=== PATIENT | male | born 1985 | race Caucasian/White ===

== ENCOUNTER 2017-12-31 20:41 | Emergency (ER) | payer SELFPAY ==
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
[2017-12-31 21:35] LABS: PLATELET COUNT 294 10^3/uL (150-400)
[2018-01-01 18:48] VITALS: BP 118/87
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
--- NOTE | 2018-01-01 19:17 | ASMTTCLDSP ---
TLC Discharge Disposition Disposition: Answers: Discharge Disposition Notes: Notes: Pt discharged home in care of parents. They will be driving back home to [place] where they all live. Pt was given the [facility] brochure. Discharge Concerns/Recommendations: Notes: IN CONSULTATION WITH [facility] ED PHYSICIAN, BRENNON TOSCANO MD, AND ON-CALL PSYCHIATRIST,JOVANY SUAREZ MD, BOTH CONCURRED THAT PT DOES NOT APPEAR TO MEET 27-65 CRITERIA REQUIRING PSYCHIATRIC HOSPITALIZATION PT DOES NOT APPEAR TO BE AN IMMINENT RISK OF HARM TO SELF/OTHERS/GRAVELY DISABLED DUE TO A MENTAL ILLNESS CONDITION. IF M1 VACATED: DR. SUAREZ PROVIDED TELEPHONE ORDER READ BACK VACATING M1 HOLD AT 1815 HRS. Was patient given the Answers: Not applicable Inpatient Behavioral Health Prohibited Belongings List while in the ED? Date and time M1 hold 01/01/2018 04:15 PM vacated (time format is hh:mm): Type of Hold: Answers: M1/72-hour Hold Hold initiated by: Answers: Police Date Signed: 01/01/2018 07:17 PM Electronically Signed By:Yeny Brown
[2018-01-01] MEDS ORDERED: LORazepam 1 MG TAB PO ONE (20:03)
== END 2018-01-01 18:48 | disposition home or self-care (01) ==
LOC: EEVIPCON 20:41
DX: F23 Brief psychotic disorder (principal)
CPT/HCPCS: 80305; G0480